=== PATIENT | female | born 1955 | race Caucasian/White ===

== ENCOUNTER 2017-04-25 06:37 | Emergency (ER) | payer OTHER ==
[~2017-04-25] VITALS: Ht 162.6 cm; Wt 59.0 kg
[~2017-04-25 06:37] MED LIST: IBUP-44 PO
[2017-04-25 06:47] VITALS: BP 151/86
--- NOTE | 2017-04-25 06:52 | NUR ---
Patient to bed 05.
--- NOTE | 2017-04-25 06:58 | NUR ---
GAVE REPORT TO JOLIE DUMONT. PT. RESTING IN BED, NO S/SX OF DISTRESS AT THIS TIME.
--- NOTE | 2017-04-25 06:58 | NUR ---
61Y/F PT PRESENTS TO ER W/C/O RIGHT 4TH FINGER PAIN X4 DAYS. PT STATES SHE MIGHT HAVE BEEN BITTEN BY A BUG, BUT SHE ISN'T SURE. AAO X4, AMBULATORY WITH STEADY GAIT. RESPIRATIONS ROOM AIR, EVEN AND UNLABORED. SKIN WARM AND DRY, MILD SWOLLEN TO RT. 4TH FINGER. C/O PAIN 7/10. VSS, NO S/SX OF DISTRESS AT THIS TIME. ER MD MADE AT THIS TIME.
--- NOTE | 2017-04-25 06:58 | NUR ---
ER MD DR ROGERS EVALUATING PT AT BEDSIDE.
--- NOTE | 2017-04-25 07:00 | NUR ---
RECEIVE REPORT FROM JOLIE MORA.
--- NOTE | 2017-04-25 07:04 | NUR ---
X RAY AT BEDSIDE.
--- NOTE | 2017-04-25 07:16 | NUR ---
CRYS HART REEVALUATING PT AT BEDSIDE. Addendum: 04/25/17 at 0723 by [email or web address] PT ST[facility]; PAIN 02/03 ;DON'T WANT PAIN MED AT THIS TIME.
[2017-04-25 07:23] VITALS: BP 155/80
--- NOTE | 2017-04-25 07:24 | NUR ---
Patient discharged with BP 155/80; DENIES HEADACHE OR DIZZINESS AT THIS TIME; AWARE.. Written and verbal after care instructions given and explained. Patient alert, oriented and verbalized understanding of instructions. Ambulatory with steady gait. All questions addressed prior to discharge. ID band removed. Patient advised to follow up with PMD. Rx of KEFLEX given. Patient educated on indication of medication including possible reaction and side effects. Opportunity to ask questions provided and answered.
== END 2017-04-25 07:24 | disposition home or self-care (01) ==
LOC: MED 06:37
DX: S61.254A Open bite of right ring finger without damage to nail, initial encounter (principal); L03.011 Cellulitis of right finger; W57.XXXA Bitten or stung by nonvenomous insect and other nonvenomous arthropods, initial encounter; Y93.89 Activity, other specified; Y92.89 Other specified places as the place of occurrence of the external cause; Y99.8 Other external cause status
CPT/HCPCS: 73130; 99284; Q0092